=== PATIENT | female | born 1960 | race Caucasian/White ===

== ENCOUNTER → 2017-09-18 | Emergency (ER) | payer OTHER ==
[~2017-09-18] VITALS: Ht 157.5 cm; Wt 52.2 kg
== END | disposition home or self-care (01) ==
LOC: ER 08:35
DX: K29.70 Gastritis, unspecified, without bleeding (principal); R51 Headache

== ENCOUNTER 2017-10-07 08:13 | Emergency (ER) | payer OTHER ==
[~2017-10-07] VITALS: Ht 160 cm; Wt 56.7 kg
== END 2017-10-07 12:22 | disposition home or self-care (01) ==
LOC: ER 08:13
DX: R51 Headache (principal)

== ENCOUNTER 2018-05-13 10:16 | Emergency (ER) | payer OTHER ==
[~2018-05-13] VITALS: Ht 157.5 cm; Wt 56.2 kg
[2018-05-13] MEDS ORDERED: ALTACE1.25 MG (10:34)
== END 2018-05-13 14:33 | disposition home or self-care (01) ==
LOC: ER 10:16
DX: S90.572A Other superficial bite of ankle, left ankle, initial encounter (principal); W57.XXXA Bitten or stung by nonvenomous insect and other nonvenomous arthropods, initial encounter; Y93.89 Activity, other specified; Y92.89 Other specified places as the place of occurrence of the external cause; Y99.8 Other external cause status

== ENCOUNTER 2019-04-22 06:10 | Emergency (ER) | payer OTHER ==
[~2019-04-22] VITALS: Ht 160 cm; Wt 56.7 kg
[~2019-04-22 06:10] MED LIST: ALTACE1.25 MG
== END 2019-04-22 10:25 | disposition home or self-care (01) ==
LOC: ER 06:10
DX: G43.809 Other migraine, not intractable, without status migrainosus (principal)

== ENCOUNTER 2019-04-29 15:55 | Emergency (ER) | payer OTHER ==
[~2019-04-29] VITALS: Ht 157.5 cm; Wt 56.7 kg
[2019-04-29] MEDS ORDERED: GELTUSS (16:57)
== END 2019-04-29 17:52 | disposition home or self-care (01) ==
LOC: ER 15:55
DX: L29.8 Other pruritus (principal)

== ENCOUNTER 2019-06-17 09:30 | Emergency (ER) | payer OTHER ==
[~2019-06-17] VITALS: Ht 157.5 cm; Wt 57.2 kg
[~2019-06-17 09:30] MED LIST changes: +GELTUSS
[2019-06-17] MEDS ORDERED: ALTACE10 MG PO (09:59)
== END 2019-06-17 16:19 | disposition home or self-care (01) ==
LOC: EMR PED 09:30 → ER 09:32
DX: R05 Cough (principal)

== ENCOUNTER 2021-02-25 23:44 | Emergency (ER) | payer OTHER ==
[~2021-02-25] VITALS: Ht 157.5 cm; Wt 56.7 kg
[~2021-02-25 23:44] MED LIST changes: +ALTACE10 MG PO
[2021-02-26] MEDS ORDERED: NABUMETONE500 MG PO (02:58)
== END 2021-02-26 03:07 ==
LOC: ER 23:44
DX: R07.89 Other chest pain (principal); I10 Essential (primary) hypertension

== ENCOUNTER 2021-08-24 09:15 | Emergency (ER) | payer OTHER ==
[~2021-08-24] VITALS: Ht 157.5 cm; Wt 58.1 kg
[~2021-08-24 09:15] MED LIST changes: +NABUMETONE500 MG PO
[2021-08-24] MEDS ORDERED: MEDROLPACK PO (13:27)
[2021-08-24] MEDS ORDERED: ZITHROMAX500 MG PO (13:27)
== END 2021-08-24 14:37 | disposition home or self-care (01) ==
LOC: ER 09:15
DX: J06.9 Acute upper respiratory infection, unspecified (principal); Z20.822 Contact with and (suspected) exposure to COVID-19

== ENCOUNTER 2021-08-31 08:23 | Emergency (ER) | payer OTHER ==
[~2021-08-31] VITALS: Ht 157.5 cm; Wt 58.1 kg
[~2021-08-31 08:23] MED LIST changes: +MEDROLPACK PO; +ZITHROMAX500 MG PO
== END 2021-08-31 10:33 | disposition home or self-care (01) ==
LOC: ER 08:23
DX: U07.1 COVID-19 (principal)

== ENCOUNTER 2022-10-10 06:56 | Emergency (ER) | payer OTHER ==
[~2022-10-10] VITALS: Ht 160 cm; Wt 58.1 kg
== END 2022-10-10 08:11 | disposition home or self-care (01) ==
LOC: ER 06:56
DX: U07.1 COVID-19 (principal)

== ENCOUNTER 2023-07-21 16:53 | Emergency (ER) | payer OTHER ==
[~2023-07-21] VITALS: Ht 165.1 cm; Wt 63.5 kg
[2023-07-21] MEDS ORDERED: KETOROLAC TROMETHAMINE 30 MG VIAL IM STA (19:16)
[2023-07-21] MEDS ORDERED: EXCEDRIN MIGRA1 EAC1 PO (19:22)
[2023-07-21] MEDS ORDERED: ALLEGRA ALLERGY60 MG PO (19:22)
== END 2023-07-21 19:26 | disposition home or self-care (01) ==
LOC: ER 16:53
DX: G43.909 Migraine, unspecified, not intractable, without status migrainosus (principal); I10 Essential (primary) hypertension; Z88.8 Allergy status to other drugs, medicaments and biological substances; Z85.3 Personal history of malignant neoplasm of breast

== ENCOUNTER 2024-01-10 16:43 | Emergency (ER) | payer OTHER ==
[~2024-01-10] VITALS: Ht 157.5 cm; Wt 56.7 kg
[~2024-01-10 16:43] MED LIST changes: +ALLEGRA ALLERGY60 MG PO; +EXCEDRIN MIGRA1 EAC1 PO
[2024-01-10 19:37] LABS: HEMATOCRIT 36.3 % (36.0-45.00); MEAN CELL VOLUME 90.7 fL (80.00-100.00); MEAN CORPUSCULAR HGB CONC 33.1 g/dl (32.0-36.0); PLATELET COUNT 287 K/uL (150-450); RED BLOOD COUNT 4.01 M/uL (4.00-6.00); RED CELL DISTRIBUTION WIDTH 13.6 % (11.5-14.5)
[2024-01-10] MEDS ORDERED: KETOROLAC TROMETHAMINE 30 MG VIAL IM STA (19:59)
[2024-01-10] MEDS ORDERED: KETOROLAC TROMETHAMINE 30 MG VIAL ONE (20:03)
== END 2024-01-10 20:07 | disposition home or self-care (01) ==
LOC: ER 16:44
PROVIDERS: General Practice
DX: M79.672 Pain in left foot (principal); Z88.8 Allergy status to other drugs, medicaments and biological substances
CPT/HCPCS: 36415; 96372; 99282; J1885

== ENCOUNTER 2024-01-19 06:08 | Emergency (ER) | payer OTHER ==
[~2024-01-19] VITALS: Ht 157.5 cm; Wt 56.7 kg
[2024-01-19 06:37] VITALS: BP 132/93; O2SAT 100
[2024-01-19 09:36] LABS: HEMATOCRIT 35.9 % (36.0-45.00); HEMOGLOBIN 12.1 g/dL (12.0-15.00); MEAN CELL VOLUME 90.1 fL (80.00-100.00); MEAN CORPUSCULAR HEMOGLOBIN 30.4 pg (27.00-32.0); MEAN CORPUSCULAR HGB CONC 33.8 g/dl (32.0-36.0); PLATELET COUNT 314 K/uL (150-450); RED BLOOD COUNT 3.98 M/uL (4.00-6.00); RED CELL DISTRIBUTION WIDTH 13.4 % (11.5-14.5)
[2024-01-19 09:47] LABS: D DIMER 1.96 MG/L
[2024-01-19 10:06] LABS: CREATININE SERUM 0.55 mg/dL (0.55-1.02); GFR 111.28; POTASSIUM 4.3 mEq/L (3.5-5.1)
== END 2024-01-19 13:44 | disposition home or self-care (01) ==
LOC: ER 06:09
PROVIDERS: General Practice
DX: I87.2 Venous insufficiency (chronic) (peripheral) (principal); Z88.8 Allergy status to other drugs, medicaments and biological substances; I10 Essential (primary) hypertension

== ENCOUNTER 2024-07-16 06:24 | Emergency (ER) | payer OTHER ==
[~2024-07-16] VITALS: Ht 157.5 cm; Wt 57.6 kg
[2024-07-16] MEDS ORDERED: NORVASC10 MG PO (06:34)
[2024-07-16] MEDS ORDERED: VALACYCLOVIR1000 MG PO (09:02)
== END 2024-07-16 09:21 | disposition home or self-care (01) ==
LOC: ER 06:26
DX: B02.9 Zoster without complications (principal); R21 Rash and other nonspecific skin eruption; I10 Essential (primary) hypertension; Z88.8 Allergy status to other drugs, medicaments and biological substances